=== PATIENT | male | born 1965 | race Hispanic/Latino ===

== ENCOUNTER 2022-09-09 07:50 | Day surgery (SDC) | payer SELFPAY ==
[2022-09-04 17:38] LABS: Potassium 4.1 mmol/L (3.5-5.1)
[2022-09-04 17:45] LABS: Absolute Lymphocytes (CBC) 2.1 K/uL (0.7-4.9); Hematocrit 43.2 % (39.6-49.0); Lymphocytes % 28.7 % (15.3-44.8); MCV 88.5 fL (80-100); MPV 9.2 fL (7.6-11.3); RBC Red Blood Cell Count 4.88 M/uL (4.33-5.43)
[2022-09-04 17:47] LABS: Protime INR 1.05
[2022-09-09] MEDS ORDERED: CEFAZOLIN SODIUM 2 GM/VIAL ONE (08:13)
[2022-09-09] MEDS ORDERED: NA CHLORIDE 0.9% 1,000 ML ONE (08:13)
[2022-09-09] MEDS ORDERED: propofoL 200 MG/20 ML VIAL IV ONE (08:46)
[2022-09-09] MEDS ORDERED: FENTANYL CITR 100 MCG/2 ML ONE (08:46)
[2022-09-09] MEDS ORDERED: MIDAZOLAM HCL 2 MG/2 ML INJ ONE (08:47)
[2022-09-09] MEDS ORDERED: LIDOCAINE 1% MPF 5 ML VIAL ONE (08:48)
[2022-09-09] MEDS ORDERED: ONDANSETRON 4 MG/2 ML VIAL ONE (08:48)
[2022-09-09] MEDS ORDERED: PHENAZOPYRIDINE 100MG TAB PO ONE (09:16)
[2022-09-09] MEDS ORDERED: CODEINE 30MG/APAP 300MG TAB PO PRN (09:16)
[2022-09-09] MEDS ORDERED: EPHEDRINE SULF 50 MG/ML VIAL ONE (09:38)
[2022-09-09] MEDS: HYDROMORPHONE HCL 1 MG/ML INJ ONE ×2 (10:06→10:11)
--- NOTE | 2022-09-09 10:49 | OP ---
Surgeon: KAREN GALVAN Preoperative Diagnoses: 1.BPH with lower urinary tract obstruction and symptoms. 2.Urinary retention/significant volume of bladder emptying. Postoperative Diagnoses: 1.BPH with lower urinary tract obstruction and symptoms. 2.Urinary retention/significant volume of bladder emptying. Principal Procedure: Prostatic urethral lift/UroLift with 6 implants placed. Indication For Procedure: Mr. Levy presented to the [facility] with obstructive urinary sympto ms, improved on Flomax with moderate volume incomplete emptying associated with a slight PSA elevatio n that stabilized at a lower level. His volume was 69.92 g and his AUA symptom score was 18/35. He was counseled on options for management to include a transurethral resection of the prostate versus l aser procedures on the prostate versus the UroLift and elected the prostatic urethral lift. Procedure In Detail: The patient was consented in the preoperative holding area before being transfe rred to operative suite where general anesthesia was induced. He was given Ancef 2 g IV antimicrobia l prophylaxis and pneumo boots were provided for DVT prophylaxis. He was placed in the lithotomy pos ition, padded and secured to the table appropriately. Hibiclens was used for his genitalia and he wa s draped in standard fashion. The case was begun using the 20-Yemeni UroLift sheath and visual obtur ator to traverse the urethra and into the bladder with ease. The prostatic urethra was surveyed on t he way in, and there was significant lateral lobar hypertrophy without significant elevation of the m edian bar. The bladder was decompressed of fluid and urine, and the first implant was loaded. The f irst implant site determine was within the left lateral wall about 1.5 to 2 cm distal to the bladder neck. This implant was placed around the 1 to 2 o'clock position sweeping anterolaterally and did bhandari ccessfully deployed leaving at least 0.5 cm of tissue between the implant and the bladder neck. The implant was placed by angling the UroLift delivery device about 10 degrees touching the prostatic tis liliana in the desired location, pulling the trigger once which delivered the needle through the surface of the prostate, angling an additional 10 degrees to ensure completion of delivery of the needle thro ugh the surface of the prostate and outside the capsule before pulling the trigger a second time bega n to retract the needle allowing the capsular tab to seat at the capsule of the prostate. A third im plant was then placed further tensioning the suture before advancing the device back toward the midli ne and advancing toward the bladder neck about 2 to 3 mm until the white of the monofilament was cent ered in the delivery bay and the 4 trigger did cut the sutured and apply the implant urethral end pie ce. As noted above, this did successfully place in the desired location. As a result, I advanced th e scope and the delivery device back into the midline and switched for new UL2 delivery device which was placed symmetrically in the right lateral lobe of the prostate at about the 10 to 11 o'clock posi tion sweeping anterolaterally about 1.5 to 2 cm from the bladder neck. I then surveyed the channel t hat had been created, and a nice opening was created at the bladder neck. There was residual apical and mid zone prostate tissue. As a result, I targeted the left apical tissue at the verumontanum and placed an additional implant there. A similar implant was placed on the right side, but this implan t ended up being slightly more proximally placed toward the bladder neck, more in the mid zone of the prostate. So when I surveyed the channel created with the visual obturator, there was still some ap ical tissue emanating from the right side of the prostate, and there was still some mid zone tissue i n the left lateral lobe of the prostate. As a result, I targeted the midzone tissue in the left mid zone of the prostate first and placed an implant between the 2 prior implants more anteriorly, which did nicely open the channel in the mid zone of the prostate. This was a fifth implant placed. I nicola veyed the channel once again using a visual obturator and confirmed the residual presence of the apic al tissue intruding into the urethral lumen, and I placed a 6th the implant at the apex on the right side this time more distal to the prior implant at the level of the verumontanum. Survey of the lo beverly created revealed a nice continuous anterior channel with an opening from the verumontanum all the way into the bladder neck observable with the bladder decompressed and the fluid decompressing. As a result, I left the bladder full and placed an 18-Yemeni coude catheter with ease with 25 cc of ster ile water in the balloon. The catheter was connected to a leg bag, and he was taken out of the litho tana position. He was then awakened from general anesthesia, transferred to a stretcher, and then tr ansferred to the recovery room in good condition. Complications: None. Discharge Disposition: He will be given a voiding trial today and if he passes, followup should be e stablished in about 1 month's time. He will be discharged with a prescription for Keflex for 5 days as well as Tylenol with Codeine for pain management. Subsequent followup should be established in ab out 1 month's time. CAMRYN/LESVIA Voice ID: [id number] Report ID: [id number]
[2022-09-09 11:16] VITALS: BP 122/74; TEMP 97; O2SAT 98
== END 2022-09-09 12:40 | disposition home or self-care (01) ==
LOC: OR 07:50
PROVIDERS: ATTEND Urology
PROC: 0T7D8DZ Dilation of Urethra with Intraluminal Device, Via Natural or Artificial Opening Endoscopic (ICD-10-PCS; principal; 2022-09-09 07:30)
DX: N40.1 Benign prostatic hyperplasia with lower urinary tract symptoms (principal); R33.9 Retention of urine, unspecified
CPT/HCPCS: 36415; 80048; 82947; 85025; 85610; 87086; 87088; J1170; J2001; J2250; J2405; J2704; J3010; J7030